=== PATIENT | male | born 1955 | race Caucasian/White ===

== ENCOUNTER 2019-12-31 15:49 | Inpatient (IN) | payer BC, SELFPAY ==
[~2019-12-31] VITALS: Ht 190.5 cm; Wt 92.1 kg
[2019-12-31 16:10] VITALS: BP 107/62
--- NOTE | 2019-12-31 16:10 | NUR ---
C/O FEVER, LOW ABD PAIN & NAUSEA X 4 DAYS. PT DENIES SOB BUT O2 SAT RA 89%. FEBRILE AT 101.1 AT THIS TIME. BILAT BASES DIMINISHED ON AUSCULTATION. PT HAS A HX OF MULTIPLE MYELOMA AND CURRENTLY RECEIVES A CHEMO INJECTION EVERY 2 WEEKS. HR EVEN AND REGULAR. PT A&O X4, SKIN WARM AND CLAMMY. BOWEL SOUNDS PRESENT X4, LBM 12/30/2019. ABDOMEN SOFT FLAT & NON TENDER. PT PLACED ON BEDSIDE HEMMER CHAINSTITCH, SIDE RAIL UP X1. BED IN LOW POSITION.
--- NOTE | 2019-12-31 16:17 | NUR ---
Patient transferred to bed 1 via wheelchair by triage nurse. RN evaluating patient at bedside.
[2019-12-31] MEDS ORDERED: ACETAMINOPHEN 325 MG TAB PO ONE (16:30)
[2019-12-31] MEDS ORDERED: KETOROLAC 30 MG/ML VIAL IVP ONE (16:30)
[2019-12-31] MEDS ORDERED: IBUPROFEN 800 MG TAB PO ONE (16:35)
--- NOTE | 2019-12-31 17:00 | NUR ---
LABS DRAW AT BEDSIDE
--- NOTE | 2019-12-31 17:00 | NUR ---
VBG DRAWN AND WALKED TO RT
--- NOTE | 2019-12-31 17:15 | NUR ---
XRAY AT BEDSIDE
[2019-12-31] MEDS ORDERED: ONDANSETRON 4 MG/2 ML VIAL IVP PRN (17:45)
[2019-12-31] MEDS ORDERED: ACETAMINOPHEN 325 MG TAB PO PRN (17:45)
[2019-12-31 18:00] LABS: BASOPHILS % (AUTO) 0.7 % (0.0-2.0); EOSINOPHILS % (AUTO) 0.1 % (0.0-4.0); HEMATOCRIT 41.7 % (36-52); HEMOGLOBIN 13.8 g/dL (12.0-18.0); LYMPHOCYTES # (AUTO) 0.8 K/uL (2.0-11.5); LYMPHOCYTES % (AUTO) 13.6 % (20.5-51.1); MEAN CORPUSCULAR HEMOGLOBIN 31 pg (27-31); MEAN CORPUSCULAR HGB CONC 33 g/dL (33-37); MEAN CORPUSCULAR VOLUME 93.8 fL (80-94); MONOCYTES # (AUTO) 0.5 K/uL (0.8-1.0); MONOCYTES % (AUTO) 8.5 % (1.7-9.3); NEUTROPHILS # (AUTO) 4.5 K/uL (1.8-7.7); NEUTROPHILS % (AUTO) 77.1 % (42.2-75.2); PLATELET COUNT (AUTO) 89 K/uL (140-450); RED BLOOD CELL COUNT(AUTO) 4.45 MIL/uL (4.20-6.10); RED CELL DISTRIBUTION WIDTH 15.1 % (11.6-13.7); WHITE BLOOD COUNT (AUTO) 5.8 K/uL (4.8-10.8)
[2019-12-31 18:25] LABS: ALBUMIN 3.1 g/dL (3.4-5.0); ANION GAP 17.7 (8-16); CARBON DIOXIDE 26.2 mmol/L (21-32); CREATININE 2.1 mg/dL (0.6-1.3); POTASSIUM 3.9 mmol/L (3.5-5.1); TOTAL BILIRUBIN 0.6 mg/dL (0.0-1.0)
--- NOTE | 2019-12-31 19:15 | NUR ---
RECEIVED REPORT FROM AVIVA TONEY FOR CONTINUATION OF CARE.
[2019-12-31] MEDS ORDERED: ALBUTEROL SULFATE/IPRATROPIU 3 ML SOL IH PRN (19:45)
[2019-12-31] MEDS ORDERED: METO25TA PO (20:28)
[2019-12-31] MEDS ORDERED: GABA300C PO (20:28)
[2019-12-31] MEDS ORDERED: CLON0.2T43 PO (20:28)
--- NOTE | 2019-12-31 20:37 | NUR ---
COVID 19 SWAB OBTAINED AND WALKER OVER TO LAB.
[2019-12-31] MEDS ORDERED: ALBUTEROL HFA MDI 90 MCG/ACTUATION 8 GM INH PRN (20:40)
[2019-12-31] MEDS ORDERED: ASCORBIC ACID 500 MG TAB PO SCH ×2 (21:00→21:05)
[2019-12-31] MEDS: DOCUSATE SODIUM 100 MG GELCAP PO SCH (21:00)
[2019-12-31] MEDS: METOPROLOL 25 MG TAB PO SCH (21:00)
[2019-12-31] MEDS: VITAMIN D 400 IU TAB PO SCH (21:05)
[2019-12-31 21:10] LABS: LACTATE DEHYDROGENASE 235 U/L (85-227)
--- NOTE | 2019-12-31 21:24 | NUR ---
PT RESTING IN BED, RR EVEN AND UNLABORED. NO NEW CONCERNS AT THIS TIME. BED IN LOWEST POSITION. PT PLACED IN MONITOR. SIDE RAIL UP X1. WILL CONTINUE TO MONITOR.
--- NOTE | 2019-12-31 21:56 | NUR ---
PT REFUSED COLACE.
--- NOTE | 2019-12-31 21:56 | NUR ---
PT TRYING TO GIVE URINE SAMPLE. NO SUCCESS.
--- NOTE | 2019-12-31 22:59 | NUR ---
PT RESTING IN BED, PT PLACED IN MONITOR. RR EVEN AND UNLABORED. NO DISTRESS NOTED. PT ON 5L/O2 AT 98%. NO NEW CONCERNS AT THIS TIME. BED IN LOWEST POSITION. SIDE RAIL UP X1. WILL CONTINUE TO MONITOR.
[2020-01-01] MEDS ORDERED: AZITHROMYCIN 250 MG TAB PO ONE (01:33)
[2020-01-01] MEDS ORDERED: methylPREDNISolone SS 125 MG/2 ML VIAL IVP ONE (01:35)
[2020-01-01] MEDS ORDERED: cefTRIAXone 1,000 MG VIAL ONE (01:50)
[2020-01-01] MEDS: ZINC SULF 220 MG CAP PO SCH ×2 (02:30→09:38)
[2020-01-01] MEDS: GABAPENTIN 300 MG CAP PO SCH ×3 (02:30→20:34)
[2020-01-01] MEDS: NACL 0.9% 1,000 ML IV SCH ×2 (02:31→17:45)
--- NOTE | 2020-01-01 04:28 | NUR ---
RECEIVED REPORT FROM FENG JACOBSEN. WILL CONT CARE AT THIS TIME.
--- NOTE | 2020-01-01 04:28 | NUR ---
REPORT GIVEN TO FENG MENA FOR CONTINUATION OF CARE.
--- NOTE | 2020-01-01 04:42 | NUR ---
SPOKE TO RESIDENT АЛЕКСАНДР ABOUT PT BP BEING 84/56. NEW ORDERS: 1L NS BOLUS TO BE GIVEN.
--- NOTE | 2020-01-01 04:43 | NUR ---
Note jordny in EDM - 01/01/20 at 0454 by [facility] SPOKE TO MD CHOU ABOUT PT BP BEING 84/56. NEW ORDERS: 1L NS BOLUS TO BE GIVEN.
[2020-01-01] MEDS ORDERED: NACL 0.9% 1,000 ML IV SCH (04:45)
--- NOTE | 2020-01-01 04:50 | NUR ---
STARTED 1L NS BOLUS PER RESIDENT MD ORDER.
[2020-01-01] MEDS ORDERED: AZITHROMYCIN 250 MG TAB ONE (05:22)
--- NOTE | 2020-01-01 06:05 | NUR ---
1L NS BOLUS FINISHED AT THIS TIME PER RESIDENT MD ORDER. PT BP IS NOW 111/57.
--- NOTE | 2020-01-01 06:24 | NUR ---
ADMINISTERED VIT C AT THIS TIME PER RESIDENT MD ORDER. MED IS AVAILABLE IN [facility]. ASKED PT FOR URINE SAMPLE AND NO URINE AT THIS TIME.
--- NOTE | 2020-01-01 07:20 | NUR ---
Pt report given to FENG REINA. Transfer of care at this time.
--- NOTE | 2020-01-01 07:34 | NUR ---
declan Addendum: 01/01/20 at 8748 by [facility]ENC[facility], PERLA HERNANDEZ.
--- NOTE | 2020-01-01 07:49 | NUR ---
PT RESTING IN BED, RR EVEN. ALL NEEDS MET AT THIS TIME. WILL CONTINUE TO MONITOR.
--- NOTE | 2020-01-01 07:57 | NUR ---
PT SITTING UPRIGHT IN BED EATING BREAKFAST.
[2020-01-01 08:00] LABS: LACTATE DEHYDROGENASE 215 U/L (85-227)
--- NOTE | 2020-01-01 08:46 | NUR ---
PATIENT HAS BEEN SCREENED AND CATEGORIZED MODERATE NUTRITION RISK. PATIENT WILL BE SEEN WITHIN 3-5 DAYS OF ADMISSION. 01/03/20 01/05/[address]
[2020-01-01] MEDS ORDERED: CLONIDINE HYDROCHLORIDE 0.1 MG TAB PO SCH (09:00)
[2020-01-01] MEDS ORDERED: ENOXAPARIN 40 MG/0.4 ML SYR SUBQ SCH (09:00)
[2020-01-01] MEDS: DEXAMETHASONE 4 MG/ML VIAL IVP SCH (09:34)
[2020-01-01] MEDS: DOCUSATE SODIUM 100 MG GELCAP PO SCH ×2 (09:36→20:33)
[2020-01-01] MEDS: METOPROLOL 25 MG TAB PO SCH ×2 (09:36→20:35)
--- NOTE | 2020-01-01 09:44 | NUR ---
PT AMBULATED TO BEDSIDE COMODE, STEADY GAIT.
--- NOTE | 2020-01-01 09:58 | NUR ---
CALLED PHARMACY IN [place] TO RX NOT IN [place].
[2020-01-01] MEDS: VITAMIN D 400 IU TAB PO SCH (10:14)
--- NOTE | 2020-01-01 10:51 | NUR ---
Dr. Tay is evaluating the patient at bedside.
[2020-01-01] MEDS: LACTOBACILLUS RHAMNOSUS GG 1 EACH CAP PO SCH (10:56)
--- NOTE | 2020-01-01 12:32 | NUR ---
SPOKE TO PTS FOR AN UPDATE.
--- NOTE | 2020-01-01 12:56 | NUR ---
PT SITTING UPRIGHT IN BED EATING LUNCH. RR EVEN.
--- NOTE | 2020-01-01 14:05 | NUR ---
Patient will be admitted to care of dr. mathews. Admited to TELE. Will go to room 115. Belongings list completed. Report to annika jacobs.
[2020-01-01 14:15] VITALS: BP 103/73
--- NOTE | 2020-01-01 14:15 | NUR ---
PATIENT ARRIVED FROM ER. ABLE TO AMBULATE WITH STEADY GAIT TO [facility] BED. NO DISTRESS NOTED. DENIES ANY PAIN. AAOX3, CALM, COOPERATIVE, SKIN COLOR APPROPRIATE TO ETHNICITY, WARM TO TOUCH. SKIN INTACT. HAS RIGHT FOOT HALF AMPUTATION. RESPIRATIONS, EVEN, UNLABORED, ON O2 4L/MIN VIA NC. IV SITE INTACT, PATENT, AND INFUSING IVF PER MD ORDERS. ORIENTED PATIENT TO ROOM AND CALL LIGHT. REVIEWED PLAN OF CARE WITH PATIENT. PATIENT VERBALIZED UNDERSTANDING. SAFETY MEASURES IN PLACE, CALL LIGHT WITHIN REACH. WILL CONTINUE TO MONITOR.
[2020-01-01 16:00] VITALS: BP 118/78
[2020-01-01 16:14] LABS: BASOPHILS % (AUTO) 1.2 % (0.0-2.0); HEMOGLOBIN 13.4 g/dL (12.0-18.0); LYMPHOCYTES # (AUTO) 0.5 K/uL (2.0-11.5); LYMPHOCYTES % (AUTO) 13.1 % (20.5-51.1); MEAN CORPUSCULAR HEMOGLOBIN 31 pg (27-31); MEAN CORPUSCULAR HGB CONC 33 g/dL (33-37); MEAN CORPUSCULAR VOLUME 94.6 fL (80-94); MONOCYTES # (AUTO) 0.1 K/uL (0.8-1.0); MONOCYTES % (AUTO) 2.7 % (1.7-9.3); NEUTROPHILS # (AUTO) 3.3 K/uL (1.8-7.7); PLATELET COUNT (AUTO) 92 K/uL (140-450); RED BLOOD CELL COUNT(AUTO) 4.34 MIL/uL (4.20-6.10); RED CELL DISTRIBUTION WIDTH 15.1 % (11.6-13.7)
[2020-01-01 16:40] LABS: CHOL/HDL RATIO 8.4 (1-4.5); PHOSPHORUS 3.5 mg/dL (2.5-4.9); THYROID STIMULATING HORMONE 0.36 uIU/mL (0.34-3.74)
--- NOTE | 2020-01-01 17:00 | NUR ---
PATIENT LYING DOWN IN BED SLEEPING, AROUSABLE BY VOICE. NO DISTRESS NOTED. CONDITION UNCHANGED. WILL CONTINUE TO MONITOR.
[2020-01-01 17:31] LABS: PROTHROMBIN TIME 9.6 secs (10.8-13.4)
[2020-01-01 17:40] LABS: ANION GAP 19.3 (8-16); POTASSIUM 4.3 mmol/L (3.5-5.1)
[2020-01-01 17:41] LABS: CREATININE 2.5 mg/dL (0.6-1.3)
[2020-01-01] MEDS ORDERED: DEXTROSE 50% 50 ML SYR IVP PRN (18:10)
[2020-01-01 18:37] LABS: FREE T4 (FREE THYROXINE) 1.06 ng/dL (0.76-1.46)
--- NOTE | 2020-01-01 19:15 | NUR ---
RECEIVED BEDSIDE REPORT FROM DAY SHIFT NURSE. PATIENT IS AWAKE, ALERT, AND ORIENTED X3. AMBULATORY AND ABLE TO MAKE NEEDS KNOWN. PT IS CALM AND COOPERATIVE TO CARE. SKIN IS WARM, DRY, AND INTACT. PT HAS RIGHT FOOT HALF AMPUTATION. RESPIRATIONS ARE EVEN AND UNLABORED. PT IS ON O2 4L/MIN VIA NC. IV ACCESS ON RIGHT AC G20 PATENT AND INTACT. IVF INFUSING WELL. NO COMPLAINTS MADE AT THIS TIME. PT DENIES ANY PAIN OR DISCOMFORT. PT KEPT COMFORTABLE. PLAN OF CARE DISCUSSED WITH PATIENT. PATIENT VERBALIZED UNDERSTANDING. SAFETY MEASURES IN PLACE, CALL LIGHT WITHIN REACH. WILL CONTINUE TO MONITOR.
--- NOTE | 2020-01-01 19:25 | NUR ---
GAVE REPORT TO WINDSHIELD TECHNICIAN NURSE FOR CONTINUITY OF CARE. PATIENT IN STABLE CONDITION.
[2020-01-01 20:00] VITALS: BP 113/73
[2020-01-01] MEDS: ASCORBIC ACID 500 MG TAB PO SCH (20:34)
[2020-01-01] MEDS ORDERED: AZITHROMYCIN 250 MG TAB PO SCH (21:00)
[2020-01-01] MEDS: INSULIN LISPRO SLIDING SCALE 100 UNITS/ML VIAL SUBQ PRN (21:00)
[2020-01-01] MEDS: BLOOD GLUCOSE MONITORING 1 DEV DEV FS SCH (21:04)
--- NOTE | 2020-01-01 21:06 | NUR ---
VITAL SIGNS STABLE. SCHEDULED MEDICATIONS GIVEN ORDERED. BLOOD SUGAR 360. INSULIN COVERAGE GIVEN ORDERED. O2 IN PLACE. PT NOT IN DISTRESS. DENIES ANY PAIN OR DISCOMFORT AT THIS TIME. SAFETY MEASURES IN PLACE. CALL LIGHT WITHIN REACH. WILL CONTINUE TO MONITOR.
--- NOTE | 2020-01-01 22:02 | NUR ---
ROUNDS MADE. PT SLEEPING IN BED. O2 IN PLACE. PT NOT IN DISTRESS. PT KEPT COMFORTABLE. SAFETY MEASURES IN PLACE. WILL CONTINUE TO MONITOR.
[2020-01-02] VITALS: BP 107/70
--- NOTE | 2020-01-02 00:11 | NUR ---
VITAL SIGNS STABLE. PT DENIES ANY PAIN OR DISCOMFORT. O2 IN PLACE. O2 SAT 94%. PT KEPT COMFORTABLE. PT WENT BACK TO SLEEP. CALL LIGHT WITHIN REACH. WILL CONTINUE TO MONITOR.
[2020-01-02] MEDS ORDERED: ENOXAPARIN 100 MG/ML SYR SUBQ SCH (01:12)
--- NOTE | 2020-01-02 02:15 | NUR ---
ROUNDS MADE. PT VERBALIZED FEELING COLD. THERMOSTAT ADJUSTED AND BLANKET PROVIDED REQUESTED. PT NOT IN DISTRESS. O2 IN PLACE. CALL LIGHT WITHIN REACH. WILL CONTINUE TO MONITOR.
[2020-01-02 04:00] VITALS: BP 119/76
--- NOTE | 2020-01-02 04:20 | NUR ---
VITAL SIGNS STABLE AT THIS TIME. PT RESTING IN BED COMFORTABLY. NOT IN DISTRESS. DENIES ANY DISCOMFORT. NO REQUESTS MADE AT THIS TIME. CALL LIGHT WITHIN REACH. WILL CONTINUE TO MONITOR.
[2020-01-02] MEDS: BLOOD GLUCOSE MONITORING 1 DEV DEV FS SCH ×4 (06:02→20:44)
[2020-01-02] MEDS: INSULIN LISPRO SLIDING SCALE 100 UNITS/ML VIAL SUBQ PRN ×4 (06:04→20:45)
--- NOTE | 2020-01-02 06:04 | NUR ---
BLOOD SUGAR 250. INSULIN COVERAGE GIVEN ORDERED. WILL CONTINUE TO MONITOR.
[2020-01-02 06:44] LABS: BASOPHILS % (AUTO) 0.3 % (0.0-2.0); HEMATOCRIT 41.5 % (36-52); HEMOGLOBIN 14.2 g/dL (12.0-18.0); LYMPHOCYTES # (AUTO) 0.8 K/uL (2.0-11.5); LYMPHOCYTES % (AUTO) 7.9 % (20.5-51.1); MEAN CORPUSCULAR HEMOGLOBIN 32 pg (27-31); MEAN CORPUSCULAR HGB CONC 34 g/dL (33-37); MEAN CORPUSCULAR VOLUME 93.5 fL (80-94); MONOCYTES # (AUTO) 0.3 K/uL (0.8-1.0); MONOCYTES % (AUTO) 3.6 % (1.7-9.3); NEUTROPHILS # (AUTO) 8.4 K/uL (1.8-7.7); NEUTROPHILS % (AUTO) 88.2 % (42.2-75.2); PLATELET COUNT (AUTO) 97 K/uL (140-450); RED BLOOD CELL COUNT(AUTO) 4.44 MIL/uL (4.20-6.10); RED CELL DISTRIBUTION WIDTH 14.8 % (11.6-13.7); WHITE BLOOD COUNT (AUTO) 9.6 K/uL (4.8-10.8)
[2020-01-02 07:04] LABS: PHOSPHORUS 3.4 mg/dL (2.5-4.9)
--- NOTE | 2020-01-02 07:10 | NUR ---
RECEIVED PATIENT FROM MICROBIOLOGY TECHNICIAN NURSE. PATIENT IS CURRENTLY LAYING BED ASLEEP, WITH NO SIGNS OF DISTRESS. RESPIRATIONS ARE EVEN AND UNLABORED ON 10L OXYMIZER WITH NO DIFFICULTIES BREATHING. SKIN IS INTACT WITH IV PATENT ASYMPTOMATIC AND INFUSING PER ORDERS. PATIENT DOES NOT COMPLAIN OF ANY PAIN AT THIS TIME. SAFETY MEASURES IN PLACE, BED IS IN LOW SEMI-FOWLERS POSITION, CALL LIGHT WITHIN REACH AND WILL CONTINUE TO MONITOR Addendum: 01/02/20 at 0747 by Kathe Azul RN 4L NASAL CANNULA
[2020-01-02 07:11] LABS: CARBON DIOXIDE 23.7 mmol/L (21-32); CREATININE 2.1 mg/dL (0.6-1.3); POTASSIUM 4.7 mmol/L (3.5-5.1)
--- NOTE | 2020-01-02 07:15 | NUR ---
ENDORSED TO DAY SHIFT NURSE FOR CONTINUITY OF CARE. PT IS IN STABLE CONDITION.
[2020-01-02 08:00] VITALS: BP 111/68
[2020-01-02] MEDS: VITAMIN D 400 IU TAB PO SCH (08:43)
[2020-01-02] MEDS: ZINC SULF 220 MG CAP PO SCH (08:43)
[2020-01-02] MEDS: DOCUSATE SODIUM 100 MG GELCAP PO SCH ×2 (08:45→20:12)
[2020-01-02] MEDS: GABAPENTIN 300 MG CAP PO SCH ×2 (08:45→20:12)
[2020-01-02] MEDS: DEXAMETHASONE 4 MG/ML VIAL IVP SCH (08:45)
[2020-01-02] MEDS: LACTOBACILLUS RHAMNOSUS GG 1 EACH CAP PO SCH (08:45)
[2020-01-02] MEDS ORDERED: CLONIDINE HYDROCHLORIDE 0.1 MG TAB PO PRN (08:45)
--- NOTE | 2020-01-02 09:00 | NUR ---
ADMINISTERED MEDICATIONS PER ORDER AND TOLERATED WELL. PATIENT STATES THAT HE IS NOT IN PAIN AT THIS TIME. IV IS NOT INTACT AND A NEW ONE WILL NEED TO BE INSERTED. SAFETY MEASURES IN PLACE AND WILL CONTINUE TO MONITOR.
[2020-01-02 09:42] LABS: APPEARANCE,URINE CLEAR (CLEAR); BILIRUBIN,URINE NEGATIVE (NEGATIVE); BLOOD, URINE NEGATIVE (NEGATIVE); COLOR,URINE YELLOW (YELLOW); LEUKOCYTE ESTERASE ,URINE NEGATIVE (NEGATIVE); NITRITE, URINE NEGATIVE (NEGATIVE); PH,URINE 5.5 (5.0-9.0); UGLUCOSE 2+ (NEGATIVE)
[2020-01-02 09:46] LABS: BARBITURATE, URINE NEGATIVE ng/ml (NEG <=200); BENZODIAZEPINE, URINE NEGATIVE ng/mL (NEG <=200); CANNABINOID, URINE NEGATIVE ng/mL (NEG <=50); COCAINE, URINE NEGATIVE ng/mL (NEG <=300); OPIATE, URINE NEGATIVE ng/mL (NEG <=2000); PHENCYCLIDINE SCREEN,URINE NEGATIVE ng/mL (NEG <=25)
--- NOTE | 2020-01-02 10:20 | NUR ---
ATTEMPTED TO INSERT IV TWICE AND WAS NOT SUCCESSFUL. WILL ASK CHARGE NURSE TO ATTEMPT IV INSERTION. PATIENT SORTO SNOT COMPLAIN OF ANY PAIN OR SHOW ANY SIGNS OF DISTRESS. SAFETY MEASURES IN PLACE AND WILL CONTINUE TO MONITOR.
[2020-01-02 12:00] VITALS: BP 112/70
[2020-01-02] MEDS: METOPROLOL 25 MG TAB PO SCH ×2 (12:28→20:13)
--- NOTE | 2020-01-02 12:32 | NUR ---
ADMINISTERED MEDICATIONS PER ORDER AND TOLERATED WELL. PATIENT BLOOD GLUCOSE IS CURRENTLY 186 THEREFORE INSULIN COVERAGE IS NEEDED. 2 UNITS OF INSULIN HAVE BEEN ADMINISTERED. PATIENT IS CURRENTLY ALERT AND AWAKE WITH NO SIGNS OF DISTRESS. SAFETY MEASURES IN PLACE AND WILL CONTINUE TO MONITOR.
--- NOTE | 2020-01-02 14:59 | NUR ---
PATIENT IS CURRENTLY SITTING IN BE WITH NO SIGNS OF DISTRESS AT THIS TIME. PATIENT DOES NOT COMPLAIN OF ANY PAIN AND O2 SATURATIONS ARE AT 91% ON 3L. SAFETY MEASURES IN PLACE AND WILL CONTINUE TO MONITOR PLAN OF CARE
--- NOTE | 2020-01-02 15:45 | NUR ---
PATIENT ASKED FOR SOME ICE WATER. PATIENT IS CURRENTLY SITTING UP IN BED WITH NO SIGNS OF DISTRESS AT THIS TIME. SAFETY MEASURES IN PLACE AND WILL CONTINUE TO MONITOR.
[2020-01-02 16:00] VITALS: BP 117/75
[2020-01-02] MEDS ORDERED: remdesivir COMMUNICATION ORDER 1 EA MISC MC PRN (16:55)
--- NOTE | 2020-01-02 16:58 | NUR ---
DC PLANNIN YRS OLD MALE PATIENT WAS ADMITTED FROM HOME WITH A DX OF HYPOXIA, FEVER R/O COVID. PATIENT HAS A HX OF HTN , MULTIPLE MYELOMA AND HYPOCHLOREMIA CXR SHOWED MILD PATCHY AIRSPACE VS EDEMA . COVID TEST BLOOD AND URINE CULTUER PENDING STARTED WITH LOVENOX IVF, IV ABX ROCEPHIN, AZITHROMYCIN AND IV DECADRON CONSULT WITH PULMO AND ID DR COURTNEY GALLEGOS PLAN TO GO HOME WHEN STABLE CM TO FOLLOW Addendum: 01/05/20 at 1402 by Julia Avilez CM DC PLANNING: PT HAS HOME O2 ORDER FAXED TO [facility] [phone] . received a call from bro madrid at [facility] provide auth# [id number] for january 01 and and requesting a clinicals to be faxed to [phone] and faxed Addendum: 01/05/20 at 1702 by Genet Cavanaugh CM FOLLOWED UP WITH TIMA GOODSON. THE AUTH FOR HOME 02 IS PENDING WILL FOLLOW UP. Addendum: 01/05/20 at 1710 by Genet Cavanaugh CM WILL FOLLOW UP IN THE MORNING THE UTILIZATION DEPARTMENT CLOSED AT 5:00 PM Addendum: 01/06/20 at 1155 by Julia Avilez CM DC PLANNING: RECEIVED A CALL FROM JAYJAY AND GILMA PRADHAN BECAUSE OF HIGH DEMAND NO O2 AVAILABLE FAXED TO [facility] SPOKE WITH GEOVANY REVIEWING THE ELIGIBILITY AND CALL BACK. [employer] ARE NOT CONTRACTED PT HAS TO PAY THE 20% COPAY. SPOKE WITH THE PATIENT EXPLAINED THE DELAY WITH THE OXYGEN DEMAND PT VERBALIZED UNDERSTANDING PREFERRED TO WAIT WITH THE CONTRACTED [employer]. CM TO FOLLOW Addendum: 01/06/20 at 1202 by Julia Avilez CM DC PLANNING: RECEIVED A CALL FROM [facility] WITH WILL DELIVER THE PORTABLE AT THE HOSPITAL BETWEEN 12-2PM AND WILL CONTACT PT'S TO DELIVER THE HOME O2. CALLED PATIENT [phone] NOTIFIED HIM THE ETA TIME. AND THE CHARGE NURSE JEFF WELL. CM TO FOLLOW Addendum: 01/06/20 at 1522 by Genet Cavanaugh CM CONTACTED FENG ZARAGOZA TO VERIFY PORTABLE HAS BEEN DELIVERED. HE STATED HE WAS ON HIS WAY TO THE ACCOUNT SERVICES MANAGER TO PICK IT UP.
--- NOTE | 2020-01-02 17:30 | NUR ---
PATIENTS BLOOD GLUCOSE IS CURRENTLY 192 THEREFORE 2 UNITS OF INSULIN NEED TO BE ADMINISTERED. SAFETY MEASURES IN PLACE AND WILL CONTINUE TO MONITOR PLAN OF CARE.
[2020-01-02 17:37] LABS: ALBUMIN 2.9 g/dL (3.4-5.0); CARBON DIOXIDE 21.8 mmol/L (21-32); CREATININE 2.1 mg/dL (0.6-1.3); POTASSIUM 4.8 mmol/L (3.5-5.1); TOTAL BILIRUBIN 0.3 mg/dL (0.0-1.0)
[2020-01-02] MEDS: NACL 0.9% 1,000 ML IV SCH (17:45)
--- NOTE | 2020-01-02 18:04 | NUR ---
ADMINISTERED 2 UNITS OF INSULIN PER ORDER PARAMETER. PATIENT STATES THAT HE IS HUNGRY AND WANTS DINNER. SAFETY MEASURES IN PLACE AND WILL CONTINUE TO MONITOR.
[2020-01-02] MEDS ORDERED: CLINICAL MONITORING MC PRN (18:25)
--- NOTE | 2020-01-02 19:00 | NUR ---
PATIENT IS CURRENTLY SITTING IN BED WITH NO SIGNS OF DISTRESS. ENDORSED TO WEB SOFTWARE ENGINEER NURSE FOR CONTINUITY OF CARE.
--- NOTE | 2020-01-02 19:16 | NUR ---
RECEIVED BEDSIDE REPORT FROM DAY RN. PT IS AAOX4. RESPIRATIONS ARE EQUAL AND UNLABORED ON 3L VIA NC SAT WELL 91%. PT IS ABLE TO MAKE NEEDS KNOWN. SKIN IS INTACT PRIOR PART L FOOT AMPUTATION. . SKIN COLOR IS APPROPRIATE FOR ETHNICITY. IV ON LW 22G SL AT THIS TIME. ON DROPLET ISOLATION WITH SIGN ON DOOR FOR COVID +. PLAN OF DISCUSSED WITH PT. CALL LIGHT IS WITHIN REACH. WILL ROUND FREQUENTLY.
[2020-01-02 20:00] VITALS: BP 114/54
[2020-01-02] MEDS ORDERED: remdesivir 200 mg in NACL 0.9% 100 ML IV SCH (20:00)
--- NOTE | 2020-01-02 20:12 | NUR ---
VSS. BG 195 WILL ADMINISTER INSULIN PER SLIDING SCALE. FIOR MEDICATION GIVEN PER ORDERS. 1ST BAG OF REMDESIVIR NOW INFUSING. MED EDUCATION GIVEN. PT VERBALIZED UNDERSTANDING. ALL NEEDS MET. CALL LIGHT IS WITHIN REACH.
[2020-01-02] MEDS: ENOXAPARIN 100 MG/ML SYR SUBQ SCH (20:15)
[2020-01-02] MEDS ORDERED: ASCORBIC ACID 500 MG TAB ONE (20:18)
[2020-01-02] MEDS: ASCORBIC ACID 500 MG TAB PO SCH (20:18)
[2020-01-02] MEDS ORDERED: LOVENOX 1MG/KG Q12H SUBQ SCH (21:00)
--- NOTE | 2020-01-02 22:13 | NUR ---
PT IS SLEEPING COMFORTABLY IN BED WITH EYES CLOSED. CHEST RISE AND FALL NOTED. NO S/S OF DISTRESS. CALL LIGHT IS WITHIN REACH.
[2020-01-03] VITALS: BP 102/66
--- NOTE | 2020-01-03 | NUR ---
VSS. TEMP 99.2 PATIENT WITH 2 BLANKETS REMOVED ONE AND INCREASED AC. NO S/S OF DISTRESS. CALL LIGHT IS WITHIN REACH. WILL CONTINUE TO MONITOR.
--- NOTE | 2020-01-03 02:04 | NUR ---
MADE ROUNDS. PT IS SLEEPING COMFORTABLY IN BED WITH EYES CLOSED. CALL LIGHT IS WITHIN REACH.
[2020-01-03 04:00] VITALS: BP 102/72
--- NOTE | 2020-01-03 04:00 | NUR ---
VITAL SIGNS ARE WITHIN NORMAL LIMITS. ALL SAFETY MEASURES ARE IN PLACE. CALL LIGHT IS WITHIN REACH.
[2020-01-03] MEDS: INSULIN LISPRO SLIDING SCALE 100 UNITS/ML VIAL SUBQ PRN ×4 (06:33→20:41)
[2020-01-03] MEDS: BLOOD GLUCOSE MONITORING 1 DEV DEV FS SCH ×4 (06:33→20:39)
--- NOTE | 2020-01-03 06:33 | NUR ---
BG 161 ADMINISTERED INSULIN PER SLIDING SCALE. PT IS STABLE. WILL ENDORSE TO DAY RN.
[2020-01-03 07:10] LABS: ALBUMIN 2.6 g/dL (3.4-5.0); ANION GAP 13.8 (8-16); CARBON DIOXIDE 24.9 mmol/L (21-32); POTASSIUM 4.7 mmol/L (3.5-5.1); TOTAL BILIRUBIN 0.4 mg/dL (0.0-1.0)
[2020-01-03 07:11] LABS: BASOPHILS % (AUTO) 0.1 % (0.0-2.0); HEMATOCRIT 41.4 % (36-52); HEMOGLOBIN 13.8 g/dL (12.0-18.0); LYMPHOCYTES # (AUTO) 0.7 K/uL (2.0-11.5); LYMPHOCYTES % (AUTO) 7.9 % (20.5-51.1); MEAN CORPUSCULAR HEMOGLOBIN 31 pg (27-31); MEAN CORPUSCULAR HGB CONC 33 g/dL (33-37); MEAN CORPUSCULAR VOLUME 93.6 fL (80-94); MONOCYTES # (AUTO) 0.4 K/uL (0.8-1.0); MONOCYTES % (AUTO) 4.7 % (1.7-9.3); NEUTROPHILS # (AUTO) 7.2 K/uL (1.8-7.7); NEUTROPHILS % (AUTO) 87.3 % (42.2-75.2); PLATELET COUNT (AUTO) 110 K/uL (140-450); RED BLOOD CELL COUNT(AUTO) 4.42 MIL/uL (4.20-6.10); RED CELL DISTRIBUTION WIDTH 14.9 % (11.6-13.7); WHITE BLOOD COUNT (AUTO) 8.3 K/uL (4.8-10.8)
--- NOTE | 2020-01-03 07:15 | NUR ---
RECEIVED REPORT FROM DIRECTOR OF STRATEGIC PARTNERSHIPS NURSE. PATIENT IS CURRENTLY SLEEPING IN BED WITH NO SIGNS OF DISTRESS AT THIS TIME. RESPIRATIONS ARE EVEN AND UNLABORED ON 3L NASAL CANNULA WITH NO DIFFICULTIES BREATHING AND O2 SATURATIONS ARE CURRENTLY AT 93%. SKIN IS INTACT WITH IV PATENT ASYMPTOMATIC AND INFUSING PER ORDERS. BED IS IN LOW SEMI-FOWLERS POSITION WITH CALL LIGHT WITHIN REACH AND SAFETY MEASURES IN PLACE. WILL CONTINUE TO MONITOR PLAN OF CARE.
[2020-01-03 07:22] LABS: ANION GAP 16.4 (8-16); CARBON DIOXIDE 25.2 mmol/L (21-32); CREATININE 1.9 mg/dL (0.6-1.3); POTASSIUM 4.6 mmol/L (3.5-5.1)
[2020-01-03 07:54] LABS: PHOSPHORUS 3.5 mg/dL (2.5-4.9)
[2020-01-03 08:00] VITALS: BP 119/76
[2020-01-03] MEDS: ENOXAPARIN 100 MG/ML SYR SUBQ SCH ×2 (08:51→20:42)
[2020-01-03] MEDS: VITAMIN D 400 IU TAB PO SCH (08:52)
[2020-01-03] MEDS: DOCUSATE SODIUM 100 MG GELCAP PO SCH ×2 (08:52→20:43)
[2020-01-03] MEDS: ZINC SULF 220 MG CAP PO SCH (08:53)
[2020-01-03] MEDS: METOPROLOL 25 MG TAB PO SCH ×2 (08:53→20:43)
[2020-01-03] MEDS: GABAPENTIN 300 MG CAP PO SCH ×2 (08:53→20:43)
--- NOTE | 2020-01-03 09:02 | NUR ---
ADMINISTERED MEDICATIONS PER ORDER AND TOLERATED WELL. PATIENT REQUESTED JUICE AND MILK. NO OTHER COMPLAINTS AT THIS TIME. SAFETY MEASURES IN PLACE AND WILL CONTINUE TO MONITOR PLAN OF CARE.
--- NOTE | 2020-01-03 10:54 | NUR ---
PATIENT IS CURRENTLY SLEEPING WITH NO SIGNS OF DISTRESS AT THIS TIME. SAFETY MEASURES IN PLACE AND WILL CONTINUE TO MONITOR.
[2020-01-03 12:00] VITALS: BP 116/71
--- NOTE | 2020-01-03 12:34 | NUR ---
PATIENT BLOOD GLUCOSE IS 196 THEREFORE 2 UNITS OF INSULIN HAVE BEEN ADMINISTERED. PATIENT IS CURRENTLY SITTING IN BED WITH LUNCH AT BEDSIDE. SAFETY MEASURES IN PLACE AND WILL CONTINUE TO MONITOR PLAN OF CARE.
--- NOTE | 2020-01-03 14:26 | NUR ---
PATIENT IS CURRENTLY SLEEPING IN BED WITH NO SIGNS OF DISTRESS AT THIS TIME. SAFETY MEASURES I PLACE AND WILL CONTINUE TO MONITOR.
--- NOTE | 2020-01-03 15:28 | NUR ---
PATIENT LEADS WERE OFF. PATIENT WENT TO THE RESTROOM AND TOOK OFF MONITOR. LEADS HAVE BEEN PUT BACK ON. SAFETY MEASURES IN PLACE AND WILL CONTINUE TO MONITOR PLAN OF CARE.
[2020-01-03 16:00] VITALS: BP 114/75
--- NOTE | 2020-01-03 16:38 | NUR ---
BLOOD SUGAR IS CURRENTLY 271 THEREFORE 6 UNITS OF INSULIN HAVE BEEN ADMINISTERED. PATIENT IS SITTING UP IN BED WITH NO SIGNS OF DISTRESS. SAFETY MEASURES IN PLACE AND WILL CONTINUE TO MONITOR PLAN OF CARE.
--- NOTE | 2020-01-03 17:18 | NUR ---
PATIENTS CALLED AND WAS UPSET BECAUSE PATIENT DID NOT GET HIS MEAL LAST NIGHT UNTIL 9PM. REASSURED THAT IF SHE BRINGS FOOD TODAY THAT I WILL MAKE SURE PATIENT RECEIVES IT. SAFETY MEASURES IN PLACE AND WILL CONTINUE TO MONITOR.
[2020-01-03] MEDS: NACL 0.9% 1,000 ML IV SCH (17:54)
--- NOTE | 2020-01-03 19:00 | NUR ---
PATIENT IS CURRENTLY SITTING IN BED WITH NO SIGNS OF DISTRESS. ENDORSE TO OPERATIONS SUPERVISOR CHEMICAL CLEANING NURSE FOR CONTINUITY OF CARE. PATIENT IS IN STABLE CONDITION.
--- NOTE | 2020-01-03 19:30 | NUR ---
RECEIVED PT AAOX4 , NID - O2 SAT WNL - ON O2 AT 3LPM/NC . DENIES ANY PAIN . SAFETY MEASURES IN PLACE , ON TELE MONITOR , IV SITE INTACT AND PATENT , PLAN OF CARE DISCUSS AND VERBALIZE UNDERSTANDING . CALL LIGHT WITHIN REACH . WILL CONT. TO MONITOR.
[2020-01-03 20:00] VITALS: BP 114/58
[2020-01-03] MEDS: remdesivir 100 mg in NACL 0.9% 100 ML IV SCH (20:38)
--- NOTE | 2020-01-03 20:40 | NUR ---
EXPLAIN TO PT . THE LOVENOX AND INSULIN SHOUL BE GIVEN TO ABDOMEN . BUT THE PT SAID I DONT WANT SHOT ON MY ABD. GIVE IT TO MY SHOULDER - EXPLAIN TO HIM - DON'T MASSAGE THE INJECTION SITE TO PREVENT BRUISES .
[2020-01-03] MEDS: ASCORBIC ACID 500 MG TAB PO SCH (20:43)
[2020-01-04] VITALS: BP 113/60
--- NOTE | 2020-01-04 | NUR ---
MAD ROUNDS , NO S/SX OF ACUTE DISTRESS NOTED , O2 SAT WNL . CALL LIGHT WITHIN REACH . WILL CONT. TO MONITOR.
--- NOTE | 2020-01-04 02:00 | NUR ---
SLEEPING - OS2 SAT WNL . CALL LIGHT WITHIN REACH.
[2020-01-04 04:00] VITALS: BP 110/70
--- NOTE | 2020-01-04 04:00 | NUR ---
MADE ROUNDS , NO S/SX OF ACUTE DISTRESS NOTED AT THIS TIME , O2 SAT WNL .
[2020-01-04] MEDS: BLOOD GLUCOSE MONITORING 1 DEV DEV FS SCH ×4 (05:49→20:25)
[2020-01-04] MEDS: INSULIN LISPRO SLIDING SCALE 100 UNITS/ML VIAL SUBQ PRN ×4 (05:50→20:24)
--- NOTE | 2020-01-04 06:00 | NUR ---
NO COMPLAIN MADE .
--- NOTE | 2020-01-04 07:20 | NUR ---
RECEIVED REPORT FROM BEHAVIORAL SCIENCE CHAIR NURSE. PATIENT IS CURRENTLY SLEEPING IN BED WITH NO SIGNS OF DISTRESS AT THIS TIME. RESPIRATIONS ARE EVEN AND UNLABORED ON ROOM AIR WITH NO DIFFICULTIES BREATHING. SKIN IN INTACT WITH IV PATENT ASYMPTOMATIC AND INFUSING PER ORDERS. SAFETY MEASURES IN PLACE AND WILL CONTINUE TO MONITOR PLAN OF CARE.
--- NOTE | 2020-01-04 07:20 | NUR ---
ENDORSED TO AM SHIFT - PT - STABLE .
[2020-01-04 08:00] VITALS: BP 128/84
[2020-01-04] MEDS: ZINC SULF 220 MG CAP PO SCH (08:06)
[2020-01-04] MEDS: ENOXAPARIN 100 MG/ML SYR SUBQ SCH ×2 (08:06→20:09)
[2020-01-04] MEDS: VITAMIN D 400 IU TAB PO SCH (08:07)
[2020-01-04] MEDS: GABAPENTIN 300 MG CAP PO SCH ×2 (08:07→20:13)
[2020-01-04] MEDS: DOCUSATE SODIUM 100 MG GELCAP PO SCH ×2 (08:08→20:13)
[2020-01-04] MEDS: METOPROLOL 25 MG TAB PO SCH ×2 (08:09→20:13)
--- NOTE | 2020-01-04 08:22 | NUR ---
ADMINISTERED MEDICATIONS PER ORDER AND TOLERATED WELL. PATIENT ASKED FOR WHOLE MILK AND JUICE. SAFETY MEASURES IN PLACE AND WILL CONTINUE TO MONITOR PLAN OF CARE.
[2020-01-04 08:25] LABS: BASOPHILS % (AUTO) 0.2 % (0.0-2.0); HEMATOCRIT 41.4 % (36-52); LYMPHOCYTES % (AUTO) 12.7 % (20.5-51.1); MEAN CORPUSCULAR HEMOGLOBIN 32 pg (27-31); MEAN CORPUSCULAR HGB CONC 34 g/dL (33-37); MEAN CORPUSCULAR VOLUME 93.8 fL (80-94); MONOCYTES # (AUTO) 0.5 K/uL (0.8-1.0); MONOCYTES % (AUTO) 6.4 % (1.7-9.3); NEUTROPHILS % (AUTO) 80.7 % (42.2-75.2); PLATELET COUNT (AUTO) 126 K/uL (140-450); RED BLOOD CELL COUNT(AUTO) 4.41 MIL/uL (4.20-6.10); RED CELL DISTRIBUTION WIDTH 15.1 % (11.6-13.7); WHITE BLOOD COUNT (AUTO) 7.5 K/uL (4.8-10.8)
[2020-01-04 08:28] LABS: ALBUMIN 2.7 g/dL (3.4-5.0); ANION GAP 17.2 (8-16); CARBON DIOXIDE 24.3 mmol/L (21-32); CREATININE 1.8 mg/dL (0.6-1.3); POTASSIUM 4.5 mmol/L (3.5-5.1); TOTAL BILIRUBIN 0.4 mg/dL (0.0-1.0)
[2020-01-04 08:38] LABS: MAGNESIUM 2.2 mg/dL (1.8-2.4); PHOSPHORUS 3.4 mg/dL (2.5-4.9)
--- NOTE | 2020-01-04 09:16 | NUR ---
PATIENT ASKED FOR ICE WITH WATER. SAFETY MEASURES IN PLACE AND WILL CONTINUE TO MONITOR PLAN OF CARE.
--- NOTE | 2020-01-04 10:35 | NUR ---
BLOCK AND CASE MAKER NOTE: Patient's Orientation Person Situation Place Time Information Provided By ERIK MONZON - Comments SW WAS UNABLE TO MEET PATIENT AT BEDSIDE DUE TO MEDICAL CONDITION. Hybrid Derivatives Trader, Realtionship and Phone Number ERIK MONZON [phone] Healthcare Power of Hammer Setter No Does Patient Have a POLST No Identifying Problems No Social Work Triggers Is A Social Work Consult Needed No Mandate Report Filed No Explanation Of Identifying Problems PATIENT IS A 64-YEAR-OLD MALE ADMITTED FOR HYPOXIA, FEVER, AND COVID R/O. PATIENT HAS PMHX OF MULTIPLE MYELOMA, NEUROPATHY, AND HTN. Admitted From Home Pre-Admission Level Of Functioning Status Independent/Ambulatory Prior Resources/Services Used In Last 12 Months No Prior Resources Used Prior DME No Prior DME Used Living Situation Lives With Family House Patient Had Caregiver No Home Support No Caregiver Issues Financial Issues No Known Financial Issue Factors/Needs No D/C Needs Identified Pt/Rep Participated In Discharge Plan Yes Patient/Family Agress With Discharge Plan Yes Discharge Plan Comments TENTATIVE DISCHARGE PLAN IS FOR PATIENT TO RETURN HOME. DC Plan Status Initiated
--- NOTE | 2020-01-04 11:54 | NUR ---
PATIENTS BLOOD GLUCOSE IS 189 THEREFORE 2 UNITS OF INSULIN HAVE BEEN ADMINISTERED. PATIENT IS CURRENTLY ON 2L NASAL CANNULA WITH O2 SATURATIONS AT 94%. WHEN OXYGEN IS TAKEN OFF PATIENT DESATURATES TO 85% AND 2L OXYGEN IS APPLIED PATIENT O2 SATURATIONS GO UP TO 93%. SAFETY MEASURES IN PLACE AND WILL CONTINUE TO MONITOR PLAN OF CARE.
[2020-01-04 12:00] VITALS: BP 116/72
--- NOTE | 2020-01-04 12:45 | NUR ---
PATIENT IS CURRENTLY EATING LUNCH IN BED WITH NO SIGN SOF DISTRESS. SAFETY MEASURES IN PLACE AND WILL CONTINUE TO MONITOR.
--- NOTE | 2020-01-04 14:46 | NUR ---
PATIENT IS CURRENTLY SLEEPING IN BED WITH NO SIGNS OF DISTRESS AT THIS TIME. SAFETY MEASURES IN PLACE AND WILL CONTINUE TO MONITOR PLAN OF CARE.
--- NOTE | 2020-01-04 15:45 | NUR ---
ENDORSED PATIENT TO NURSE SAIMA. PATIENT IS CURRENTLY IN BED WITH NO SIGNS OF DISTRESS OR COMPLAINTS OF PAIN. SAFETY MEASURES IN PLACE AND WILL CONTINUE OT MONITOR PLAN OF CARE.
[2020-01-04 16:10] VITALS: BP 124/78
--- NOTE | 2020-01-04 17:31 | NUR ---
PATIENT WATCHING TV, ON O2 AT 2L/MIN, SKIN WARM TO TOUCH RESP. EVEN AND UNLABORED, O2 SAT 92, NO DISTRESS NOTED.
[2020-01-04] MEDS: NACL 0.9% 1,000 ML IV SCH (17:45)
--- NOTE | 2020-01-04 19:19 | NUR ---
ENDORSED TO PM SHIFT, PATIENT ALERT, AWAKE, WATCHING TV, NO SOB NOTED.
--- NOTE | 2020-01-04 19:20 | NUR ---
RECEIVED BEDSIDE REPORT FROM DAY SHIFT NURSE. PATIENT IS AWAKE, ALERT, AND COOPERATIVE. RESPIRATION EVEN UNLABORED ON 2L NC O2. NO DISTRESS NOTED. SKIN IS WARM AND DRY. IV PATENT AND INTACT. PLAN OF CARE WAS DISCUSSED. ALL SAFETY MEASURES IN PLACE. BED IS AT LOW POSITION. CALL LIGHT WITHIN REACH AND VERBALIZES ITS USE. WILL CONTINUE TO MONITOR.
[2020-01-04 20:00] VITALS: BP 133/78
--- NOTE | 2020-01-04 20:00 | NUR ---
INITIAL ASSESSMENT DONE. VITALS WERE TAKEN. PATIENT IN STABLE CONDITION. NO DISTRESS NOTED. WILL CONTINUE TO MONITOR.
[2020-01-04] MEDS: remdesivir 100 mg in NACL 0.9% 100 ML IV SCH (20:11)
[2020-01-04] MEDS: ASCORBIC ACID 500 MG TAB PO SCH (20:13)
--- NOTE | 2020-01-04 20:15 | NUR ---
ALL SCHEDULED MEDS WERE GIVEN PER ORDER. NO ASE NOTED. WILL CONTINUE TO MONITOR.
--- NOTE | 2020-01-04 22:39 | NUR ---
CHECKED PATIENT. PATIENT SLEEPING RESPIRATION EVEN UNLABORED ON ROOM AIR. NO DISTRESS NOTED. WILL CONTINUE TO MONITOR.
[2020-01-05] VITALS: BP 110/76
--- NOTE | 2020-01-05 00:05 | NUR ---
VITALS WERE TAKEN. PATIENT IN STABLE CONDITION. NO DISTRESS NOTED. WILL CONTINUE TO MONITOR.
--- NOTE | 2020-01-05 02:58 | NUR ---
CHECKED PATIENT. PATIENT SLEEPING RESPIRATION EVEN UNLABORED ON 2L NC O2. NO DISTRESS NOTED. WILL CONTINUE TO MONITOR.
[2020-01-05 04:00] VITALS: BP 120/82
--- NOTE | 2020-01-05 04:20 | NUR ---
VITALS WERE TAKEN. PATIENT IN STABLE CONDITION. NO DISTRESS NOTED. WILL CONTINUE TO MONITOR.
[2020-01-05] MEDS: BLOOD GLUCOSE MONITORING 1 DEV DEV FS SCH ×4 (06:22→22:00)
[2020-01-05] MEDS: INSULIN LISPRO SLIDING SCALE 100 UNITS/ML VIAL SUBQ PRN ×4 (06:24→22:05)
--- NOTE | 2020-01-05 07:24 | NUR ---
ENDORSED PATIENT TP DAY SHIFT NURSE. PATIENT IN STABLE CONDITION,
--- NOTE | 2020-01-05 07:25 | NUR ---
RECEIVED REPORT FROM COMMERCIAL LINES ASSISTANT NURSE. PATIENT LYING DOWN IN BED SLEEPING, AROUSABLE BY VOICE. NO DISTRESS NOTED. DENIES ANY PAIN. AAOX4, CALM, COOPERATIVE, SKIN COLOR APPROPRIATE TO ETHNICITY, WARM TO TOUCH. SKIN INTACT. RESPIRATIONS EVEN, UNLABORED, ON O2 2L/MIN VIA NC. IV SITE INTACT, PATENT, AND INFUSING IVF PER MD ORDERS. REVIEWED PLAN OF CARE WITH PATIENT. PATIENT VERBALIZED UNDERSTANDING. SAFETY MEASURES IN PLACE, CALL LIGHT WITHIN REACH. WILL CONTINUE TO MONITOR.
--- NOTE | 2020-01-05 07:30 | NUR ---
RECEIVED PT FROM DAY RN IN STABLE CONDITION. AOX4 ON 3L N/C. ON TELE MONITOR, CARDIAC RHYTHM IS SR. NO S/S RESPIRATORY DISTRESS. NO C/O PAIN AT THIS TIME. IV SITE ON L HAND 24G ASYMPTOMATIC. SKIN INTACT, WARM AND DRY. ENHANCED DROPLET PRECAUTION IN PLACE. BED IN LOW POSITION, SIDE RAILS UPX2, CALL LIGHT WITHIN REACH. WILL CONTINUE TO MONITOR. Addendum: 01/05/20 at 1951 by Leanna Calvin RN TIME IS 1929
[2020-01-05 08:00] VITALS: BP 121/81
[2020-01-05 08:07] LABS: BASOPHILS % (AUTO) 0.3 % (0.0-2.0); EOSINOPHILS % (AUTO) 0.1 % (0.0-4.0); HEMATOCRIT 44.2 % (36-52); HEMOGLOBIN 14.7 g/dL (12.0-18.0); LYMPHOCYTES # (AUTO) 1.2 K/uL (2.0-11.5); LYMPHOCYTES % (AUTO) 11.4 % (20.5-51.1); MEAN CORPUSCULAR HEMOGLOBIN 31 pg (27-31); MEAN CORPUSCULAR HGB CONC 33 g/dL (33-37); MEAN CORPUSCULAR VOLUME 94.2 fL (80-94); MONOCYTES # (AUTO) 0.5 K/uL (0.8-1.0); MONOCYTES % (AUTO) 4.3 % (1.7-9.3); NEUTROPHILS % (AUTO) 83.9 % (42.2-75.2); PLATELET COUNT (AUTO) 155 K/uL (140-450); RED BLOOD CELL COUNT(AUTO) 4.69 MIL/uL (4.20-6.10); RED CELL DISTRIBUTION WIDTH 14.9 % (11.6-13.7); WHITE BLOOD COUNT (AUTO) 10.7 K/uL (4.8-10.8)
[2020-01-05 08:24] LABS: MAGNESIUM 2.2 mg/dL (1.8-2.4); PHOSPHORUS 3.1 mg/dL (2.5-4.9)
[2020-01-05 08:35] LABS: ALBUMIN 2.7 g/dL (3.4-5.0); ANION GAP 19.5 (8-16); CARBON DIOXIDE 20.9 mmol/L (21-32); CREATININE 1.8 mg/dL (0.6-1.3); POTASSIUM 4.4 mmol/L (3.5-5.1); TOTAL BILIRUBIN 0.4 mg/dL (0.0-1.0)
[2020-01-05] MEDS: METOPROLOL 25 MG TAB PO SCH ×2 (09:47→20:35)
[2020-01-05] MEDS: ZINC SULF 220 MG CAP PO SCH (09:47)
[2020-01-05] MEDS: VITAMIN D 400 IU TAB PO SCH (09:47)
[2020-01-05] MEDS: DOCUSATE SODIUM 100 MG GELCAP PO SCH ×2 (09:47→20:33)
[2020-01-05] MEDS: ENOXAPARIN 100 MG/ML SYR SUBQ SCH ×2 (09:48→20:37)
[2020-01-05] MEDS: GABAPENTIN 300 MG CAP PO SCH ×2 (09:48→20:34)
--- NOTE | 2020-01-05 10:05 | NUR ---
PATIENT SITTING IN BED WATCHING TV. NO DISTRESS NOTED. SCHEDULED MEDICATIONS DUE GIVEN. WILL CONTINUE TO MONITOR.
[2020-01-05] MEDS ORDERED: DEXA6TAB1 PO (11:24)
[2020-01-05] MEDS ORDERED: APIX5TAB4 PO (11:24)
[2020-01-05] MEDS ORDERED: VITC500 PO (11:24)
[2020-01-05] MEDS ORDERED: VITD400 PO (11:24)
[2020-01-05] MEDS ORDERED: ZINC220C28 PO (11:24)
[2020-01-05 12:00] VITALS: BP 124/85
--- NOTE | 2020-01-05 13:38 | NUR ---
SCHEDULED MEDICATIONS DUE GIVEN. WILL CONTINUE TO MONITOR.
[2020-01-05 16:00] VITALS: BP 130/84
--- NOTE | 2020-01-05 16:00 | NUR ---
PATIENT SITTING IN BED WATCHING TV. NO DISTRESS NOTED. CONDITION UNCHANGED. WILL CONTINUE TO MONITOR.
--- NOTE | 2020-01-05 17:30 | NUR ---
SPOKE TO ISIDRA BRAVO CM REGARDING PATIENT'S HOME O2 SET UP. SHE WILL CALL [employer] TO ARRANGE HOME 02. I ADVISED HER TO CALL PATIENT'S NURSE GILMAR ONCE O2 IS HAS BEEN SET UP.
[2020-01-05] MEDS: NACL 0.9% 1,000 ML IV SCH (17:45)
--- NOTE | 2020-01-05 19:25 | NUR ---
GAVE REPORT TO [employer]IC[employer] DRIVER NURSE FOR CONTINUITY OF CARE. PATIENT IN STABLE CONDITION
[2020-01-05 20:00] VITALS: BP 119/85
[2020-01-05] MEDS: ASCORBIC ACID 500 MG TAB PO SCH (20:34)
--- NOTE | 2020-01-05 20:40 | NUR ---
ADMINISTERED SCHEDULED MEDICATIONS PER MD. MEDICATION EDUCATION GIVEN. PT VERBALIZED UNDERSTANDING. CALL LIGHT WITHIN REACH. WILL CONTINUE TO MONITOR
--- NOTE | 2020-01-05 21:00 | NUR ---
PT ACCIDENTALLY PULLED OUT 24G IV ON LEFT HAND, INTACT. PLACED NEW IV ON LEFT WRIST 24G, ASYMPTOMATIC
[2020-01-05] MEDS: remdesivir 100 mg in NACL 0.9% 100 ML IV SCH (21:47)
--- NOTE | 2020-01-05 22:00 | NUR ---
PT BLOOD SUGAR 229. ADMINISTERED 4 UNITS HUMALOG PER MD.
--- NOTE | 2020-01-05 23:21 | NUR ---
PT ASLEEP. NO DISTRESS NOTED. WILL CONTINUE TO MONITOR.
[2020-01-06] VITALS: BP 132/87
--- NOTE | 2020-01-06 01:15 | NUR ---
PT ASLEEP IN BED. NO S/S DISTRESS. O2 SAT 93% ON 2L N/C, HR 60. WILL CONTINUE TO MONITOR.
--- NOTE | 2020-01-06 03:20 | NUR ---
PT RESTING IN BED. NO DISTRESS NOTED. NO C/O AT THIS TIME. CALL LIGHT WITHIN REACH. WILL CONTINUE TO MONITOR
[2020-01-06 04:00] VITALS: BP 124/82
[2020-01-06 06:07] LABS: LD1 FRACTION 18 % (17-32); LD2 FRACTION 36 % (25-40); LD3 FRACTION 25 % (17-27); LD4 FRACTION 10 % (5-13); LD5 FRACTION 11 % (4-20)
--- NOTE | 2020-01-06 06:15 | NUR ---
PT RESTING IN BED. NO DISTRESS NOTED. VOIDED 500ML. HAD BM X1 IN THE EVENING.
--- NOTE | 2020-01-06 07:05 | NUR ---
ENDORSED PT IN STABLE CONDITION TO DAY RN FOR CONTINUITY OF CARE.
--- NOTE | 2020-01-06 07:10 | NUR ---
RECEIVED PATIENT FROM NIGHT NURSE. PATIENT IS AWAKE AND ALERT. RESP EVEN AND UNLABORED ON 2L NC.DROPLET PRECAUTION OBSERVED. PATIENT IS PENDING DISCHARGE PENDING FOR OXYGEN TO BE DELIVERED. PATIENT DENIES OF PAIN OR DISCOMFORT. PLAN OF CARE DISCUSSED WITH PATIENT. PATIENT VERBALIZED UNDERSTANDING. CALL LIGHT WITHIN REACH. BED IN LOW POSITION. WILL CONTINUE TO MONITOR.
[2020-01-06] MEDS: BLOOD GLUCOSE MONITORING 1 DEV DEV FS SCH ×2 (07:30→11:30)
[2020-01-06 08:00] VITALS: BP 130/83
[2020-01-06 08:49] LABS: ALBUMIN 3.1 g/dL (3.4-5.0); ANION GAP 18.8 (8-16); CARBON DIOXIDE 24.2 mmol/L (21-32); CREATININE 1.6 mg/dL (0.6-1.3); TOTAL BILIRUBIN 0.6 mg/dL (0.0-1.0)
[2020-01-06] MEDS: METOPROLOL 25 MG TAB PO SCH (10:20)
[2020-01-06] MEDS: ZINC SULF 220 MG CAP PO SCH (10:20)
[2020-01-06] MEDS: VITAMIN D 400 IU TAB PO SCH (10:21)
[2020-01-06] MEDS: GABAPENTIN 300 MG CAP PO SCH (10:21)
[2020-01-06] MEDS: DOCUSATE SODIUM 100 MG GELCAP PO SCH (10:21)
[2020-01-06] MEDS: ENOXAPARIN 100 MG/ML SYR SUBQ SCH (10:25)
--- NOTE | 2020-01-06 10:29 | NUR ---
01/06/20 RD INITIAL ASSESSMENT COMPLETED PLEASE REFER TO NUTRITION ASSESSMENT UNDER CARE ACTIVITY FOR ESTIMATED NUTRITIONAL NEEDS. RD RECOMMENDATIONS: 1. RECOMMEND CONTINUE REGULAR DIET 2. RECOMMEND CONSIDER CHANGE CHANGE DIET TO 75GM CCHO 2G NA DIET (PT NOT DIABETIC BUT BLOOD GLUCOSE LEVELS ARE HIGH, PT WITH HX OF HTN AND CURRENTLY ELEVATED BUN, CR) 3. F/U 3-5 DAYS; MODERATE RISK SHAVONNE ASKEW MBA, RD
--- NOTE | 2020-01-06 10:38 | NUR ---
MORNING ROUTINE MEDICATIONS GIVEN. PATIENT TOLERATED WELL. CALL LIGHT WITHIN REACH. PATIENT DENIES OF PAIN OR DISCOMFORT. WILL CONTINUE TO MONITOR.
--- NOTE | 2020-01-06 11:50 | NUR ---
OXYGEN IS PENDING TO BE DELIVERED ETA 12 TO 1400. PENDING DISCHARGE WITH PORTABLE O2
[2020-01-06 12:00] VITALS: BP 130/86
[2020-01-06] MEDS: INSULIN LISPRO SLIDING SCALE 100 UNITS/ML VIAL SUBQ PRN (12:47)
--- NOTE | 2020-01-06 15:50 | NUR ---
PATIENT IS DISCHARGED HOME VIA WHEELCHAIR WITH BY PRIVATE VEHICLE. PATIENT LEFT WITH PORTABLE OXYGEN BROUGHT BY HIS . COVID ISOLATION TEACHING PROVIDED. PATIENT VERBALIZED UNDERSTANDING. PATIENT LEFT IN STABLE CONDITION.
[2020-01-08 12:03] LABS: FERRITIN 994 ng/mL (30 - 400); LACTATE DEHYDROGENASE 255 IU/L (0-214)
== END 2020-01-06 15:50 | disposition home or self-care (01) | DRG 177 ==
LOC: EEVIPCON 15:49 → MED 15:49 → MTU 17:53
PROVIDERS: ADMIT General Practice; ATTEND General Practice
DX: U07.1 COVID-19 (principal); E43 Unspecified severe protein-calorie malnutrition; J12.89 Other viral pneumonia; J96.01 Acute respiratory failure with hypoxia; N17.0 Acute kidney failure with tubular necrosis; C90.00 Multiple myeloma not having achieved remission; E87.1 Hypo-osmolality and hyponatremia; D89.9 Disorder involving the immune mechanism, unspecified; E87.8 Other disorders of electrolyte and fluid balance, not elsewhere classified; I10 Essential (primary) hypertension; E11.40 Type 2 diabetes mellitus with diabetic neuropathy, unspecified; Z68.25 Body mass index [BMI] 25.0-25.9, adult
CPT/HCPCS: 36415; 71045; 80048; 80053; 80305; 81003; 82150; 82550; 82728; 82803; 82948; 83036; 83605; 83615; 83625; 83690; 83735; 83880; 84100; 84439; 84443; 84484; 85025; 85379; 85610; 85651; 85730; 86140; 86886; 86900; 86901; 87040; 87081; 87086; 87804; 93005; J0696; J1100; J1650; J1815; J1885; J2405; J2930; J7030; J7060; Q0092; U0003-CS